=== PATIENT | male | born 1950 | race Native Hawaiian/Other Pacific Islander ===

== ENCOUNTER 2018-06-10 14:34 | Emergency (ER) | payer MEDICAID ==
[2018-06-10 14:49] VITALS: BMI 29.2
[2018-06-10 16:40] LABS: BASO # 0.1 K/uL (0.0-0.2); BASO % 0.8 % (0.0-2.0); EOS # 0.1 K/uL (0.0-0.7); EOS % 1.4 % (0.0-4.0); HEMOGLOBIN 14.4 g/dL (12.0-18.0); LYMPH # 2.3 K/uL (1.0-4.3); LYMPH % 22.2 % (20.0-40.0); MEAN CELL VOLUME 94.9 fL (80.0-94.0); MEAN CORPUSCULAR HEMOGLOBIN 31.7 pg (27.0-31.0); MEAN CORPUSCULAR HGB CONC 33.5 g/dL (33.0-37.0); MEAN PLATELET VOLUME 8.2 fL (7.2-11.7); MONO # 0.7 K/uL (0.0-0.8); MONO % 7.1 % (0.0-10.0); NEUT % 68.5 % (50.0-75.0); RBC 4.53 Mil/uL (4.40-5.90); RED CELL DISTRIBUTION WIDTH 13.1 % (11.5-14.5); WHITE BLOOD COUNT 10.3 K/uL (4.8-10.8)
--- NOTE | 2018-06-10 16:40 | C.PDOC ---
History Of Present Illness 68 year old male with history of hypertension presents to ED complaining of intermittent chest pain for the past three days. Patient states he has had intermittent chest pain 3 times today. Patient reports never having this kind of pain in his chest, and never had a stress test. Patient states he has an echo and cardio appointment in the beginning of June. Denies alleviating factors, exacerbating factors, high cholesterol, tobacco abuse, family history of heart attacks, pleuritics, dizziness, shortness of breath, fever, chills. Time Seen by Provider: 06/10/18 15:38 Chief Complaint (Nursing): Chest Pain History Per: Patient History/Exam Limitations: no limitations Onset/Duration Of Symptoms: Days Current Symptoms Are (Timing): Still Present Exacerbating Factors: None Alleviating Factors: None Past Medical History Reviewed: Historical Data, Nursing Documentation, Vital Signs Vital Signs: Last Vital Signs Temp 98.3 F 06/10/18 14:51 Pulse 69 06/10/18 14:51 Resp 20 06/10/18 14:51 BP 143/79 06/10/18 14:51 Pulse Ox 100 06/10/18 14:51 - Medical History PMH: HTN, Hypercholesterolemia Surgical History: No Surg Hx Family History: States: No Known Family Hx - Social History Hx Alcohol Use: No Hx Substance Use: No - Immunization History Hx Tetanus Toxoid Vaccination: No Hx Influenza Vaccination: Yes Hx Pneumococcal Vaccination: No Review Of Systems Constitutional: Negative for: Fever, Chills Cardiovascular: Positive for: Chest Pain (Intermittent chest pain) Respiratory: Negative for: Cough, Shortness of Breath Gastrointestinal: Negative for: Nausea, Vomiting Neurological: Negative for: Weakness, Numbness, Dizziness Physical Exam - Physical Exam Appears: Non-toxic, No Acute Distress Skin: Warm, Dry Head: Atraumatic, Normacephalic Eye(s): bilateral: PERRL, EOMI Oral Mucosa: Moist Tongue: Normal Appearing Neck: Supple Chest: Symmetrical, No Deformity Cardiovascular: Rhythm Regular, No Murmur Respiratory: Normal Breath Sounds, No Rales, No Rhonchi, No Wheezing Gastrointestinal/Abdominal: Soft, No Tenderness Extremity: Normal ROM Neurological/Psych: Oriented x3, Normal Motor, Normal Sensation ED Course And Treatment - Laboratory Results Result Diagrams: 06/10/18 16:35 06/10/18 16:35 ECG: Interpreted By Me, Viewed By Me Interpretation Of ECG: Sinus rhythm 67 bpm, normal axis, normal interval, no ST/T wave changes. O2 Sat by Pulse Oximetry: 100 (RA) Pulse Ox Interpretation: Normal - Other Rad Chest x-ray X-Ray: Interpreted by Me, Viewed By Me Interpretation: FINDINGS: LUNGS: No focal consolidation. Please note that chest x-ray has limited sensitivity for the detection of pulmonary masses. PLEURA: No significant pleural effusion identified. No definite pneumothorax . CARDIOVASCULAR: Borderline cardiomegaly. Ectatic aorta. OSSEOUS STRUCTURES: Degenerative changes. VISUALIZED UPPER ABDOMEN: Unremarkable. OTHER FINDINGS: None. IMPRESSION: Borderline cardiomegaly. Ectatic aorta. Medical Decision Making Medical Decision Making: Plans: * Labs * Chest x-ray Workup unremarkable. Results discussed with patient and family. Patient has been chest pain free throughout ED course. Advised followup as outpatient, has had an appointment with a waste water treatment plant operator early next month. Return to the ED for any new or worsening symptoms. Disposition - Disposition Disposition: HOME/ ROUTINE Disposition Time: 18:14 Condition: GOOD Additional Instructions: ROCAEL CLEMONS, thank you for letting us take care of you today. Your provider was Mindi Barnes MD and you were treated for CHEST PAIN. The emergency medical care you received today was directed at your acute symptoms. If you were prescribed any medication, please fill it and take as directed. It may take several days for your symptoms to resolve. Return to the Emergency Department if your symptoms worsen, do not improve, or if you have any other problems. Please contact your doctor or call one of the physicians/clinics you have been referred to that are listed on the Patient Visit Information form that is included in your discharge packet. Bring any paperwork you were given at discharge with you along with any medications you are taking to your follow up visit. Our treatment cannot replace ongoing medical care by a primary care provider outside of the emergency department. Thank you for allowing the [facility] team to be part of your care today. If you had an X-Ray or CT scan: A Radiologist will review the ED reading if any change in treatment is needed we will contact you. If you had a blood, urine, or wound culture: It will take several days for the results, if any change in treatment is needed we will contact you. If you had an STI test: It will take 48 hours for the results. Please call after 1 week if you have not heard back. Instructions: Chest Pain (DC) Forms: [facility] (I[place]ic) - Clinical Impression Clinical Impression: Chest pain - Scribe Statement The provider has reviewed the documentation as recorded by the Ranjit King Provider Attestation: All medical record entries made by the Ranjit were at my direction and personally dictated by me. I have reviewed the chart and agree that the record accurately reflects my personal performance of the history, physical exam, medical decision making, and the department course for this patient. I have also personally directed, reviewed, and agree with the discharge instructions and disposition.
[2018-06-10 16:50] LABS: BLOOD UREA NITROGEN 14 mg/dL (9-20); CALCIUM 9.9 mg/dl (8.6-10.4); GFR NON-AFRICAN AMERICAN > 60
--- NOTE | 2018-06-10 17:23 | RAD ---
HISTORY: chest pain COMPARISON: None available. TECHNIQUE: Chest, one view. FINDINGS: LUNGS: No focal consolidation. Please note that chest x-ray has limited sensitivity for the detection of pulmonary masses. PLEURA: No significant pleural effusion identified. No definite pneumothorax . CARDIOVASCULAR: Borderline cardiomegaly. Ectatic aorta. OSSEOUS STRUCTURES: Degenerative changes. VISUALIZED UPPER ABDOMEN: Unremarkable. OTHER FINDINGS: None. IMPRESSION: Borderline cardiomegaly. Ectatic aorta.
[2018-06-10 18:24] VITALS: BP 130/76; PULSE 68; RESP 16; TEMP 98.5
[2018-06-10 20:50] VITALS: O2SAT 100
--- NOTE | 2018-06-12 21:27 | CARD ---
APPROVED REPORT Date of service: 06/10/2018 EKG Measurement Heart [id number] <Conclusion> Normal sinus rhythm Normal ECG
== END 2018-06-10 18:22 | disposition home or self-care (01) ==
LOC: C.ER 14:34
DX: R07.9 Chest pain, unspecified (principal); I10 Essential (primary) hypertension; E78.00 Pure hypercholesterolemia, unspecified